=== PATIENT | male | born 1950 | race Caucasian/White ===

== ENCOUNTER 2020-09-07 19:26 | Emergency (ER) | payer MEDICARE ==
[2020-09-07 20:01] VITALS: BP 130/81; PULSE 71; TEMP 100
[2020-09-07 20:03] VITALS: RESP 18
--- NOTE | 2020-09-07 21:07 | ED ---
General Adult HPI - General Chief complaint: Fever Stated complaint: Fever Time Seen by Provider: 09/07/20 20:24 Source: patient Mode of arrival: ambulatory - History of Present Illness Initial comments: 70-year-old male patient presenting to the emergency department via EMS for elevated temperature. Patient states he's been sick for the last 2-3 days with elevated temperature, cough, congestion. States he believes he has COVID-19. States he was exposed. Patient denies any vomiting or diarrhea. Denies shortness of breath or chest pain. Patient is requesting to be discharged without testing. States he just became very nervous when his temperature at home read 104. States he did take Tylenol prior to arrival. - Related Data Home Medications Medication Instructions Recorded Confirmed Advair(Dose Unknown) 1 puff INHALATION DIRECTED PRN 05/24/15 05/29/15 Multivitamins, Thera [Theragran] 1 each PO DAILY 05/24/15 05/29/15 Tamsulosin [Flomax] 0.4 mg PO BID 05/24/15 05/29/15 diphenhydrAMINE HCL [Benadryl] 25 mg PO HS 05/24/15 05/29/15 Allergies Allergy/AdvReac Type Severity Reaction Status Date / Time No Known Allergies Allergy Verified 05/29/15 07:49 Review of Systems ROS Statement: Those systems with pertinent positive or pertinent negative responses have been documented in the HPI. ROS Other: All systems not noted in ROS Statement are negative. Past Medical History Past Medical History: COPD, Prostate Disorder Additional Past Medical History / Comment(s): gout History of Any Multi-Drug Resistant Organisms: None Reported Past Surgical History: Hernia Repair Past Anesthesia/Blood Transfusion Reactions: No Reported Reaction Past Psychological History: No Psychological Hx Reported Smoking Status: Former smoker Past Alcohol Use History: Daily Past Drug Use History: None Reported - Past Family History Father Family Medical History: Cancer General Exam General appearance: alert, in no apparent distress, other (this is a well- developed, well-nourished adult male patient in no acute distress.) Eye exam: Present: normal appearance, PERRL, EOMI. Absent: scleral icterus, conjunctival injection, periorbital swelling ENT exam: Present: normal exam, normal oropharynx, mucous membranes moist Respiratory exam: Present: normal lung sounds bilaterally. Absent: respiratory distress, wheezes, rales, rhonchi, stridor Cardiovascular Exam: Present: regular rate, normal rhythm, normal heart sounds. Absent: systolic murmur, diastolic murmur, rubs, gallop, clicks Neurological exam: Present: alert, oriented X3, CN II-XII intact Psychiatric exam: Present: normal affect, normal mood Skin exam: Present: warm, dry, intact, normal color. Absent: rash Course Vital Signs 09/07/20 09/07/20 19:57 20:02 Temperature 100.0 F H Pulse Rate 71 Respiratory 15 18 Rate Blood Pressure 130/81 Medical Decision Making - Medical Decision Making 70-year-old male patient presented to the emergency department today via EMS for elevated temperature. Patient states became very nervous when his thermometer read 104F so he called an ambulance. States he did take Tylenol prior to coming in. Denies any current shortness of breath or chest pain. I did recommend having testing for it as well as chest x-ray. He declined states he wanted to be discharged. States he is feeling much better now that his fever is improved. I did inform him that he is eligible to receive bamlanivimab monocl onal antibodies if his coronavirus test came back positive. I discussed this treatment in detail including risks versus benefits, he declined stating he wanted to be discharged without any further testing or medications. I did inform him that he would have to sign out AGAINST MEDICAL ADVICE and did discuss risk of worsening illness and . He verbalizes understanding and left the department. My attending is Dr. Porter. Disposition Clinical Impression: Fever, Cough Disposition: Left Against Medical Advice Condition: Undetermined Instructions (If sedation given, give patient instructions): Fever in Adults (ED), Upper Respiratory Infection (ED) Additional Instructions: Emergency department for symptoms worsen or change. Follow-up with the primary care physician as soon as possible. Is patient prescribed a controlled substance at d/c from ED?: No Referrals: Jenny Soni DO [Primary Care Provider] - 1-2 days Time of Disposition: 21:07
== END 2020-09-07 21:20 | disposition left against medical advice (07) ==
LOC: EC 19:26
DX: R50.9 Fever, unspecified (principal); R05 Cough; J44.9 Chronic obstructive pulmonary disease, unspecified; Z87.891 Personal history of nicotine dependence
CPT/HCPCS: 99283

== ENCOUNTER → 2023-09-08 | Outpatient (CLI) | payer MEDICARE ==
--- NOTE | 2023-09-08 18:52 | US ---
EXAMINATION TYPE: US arterial LE single level DATE OF EXAM: 09/08/2023 2:10 PM CLINICAL INDICATION: Male, 73 years old with history of I73.9 PERIPHERAL VASCULAR DISEASE; pain in le gs History of: Smoker: 30 yrs prior Hypertension: n Diabetic: n Hyperlipidemia: n TIA/CVA: n Previous Vascular Surgery: n CAD: n ND: n Vascular Ulcers: n Claudication: n Gangrene: n Doppler Waveforms: Right: Multiphasic Left: Multiphasic Right Brachial Pressure: 166 Left Brachial Pressure: 157 Ankle-Brachial Indices: Right: 1.08 Left: 1.19 (Vessel hardening > 1.4; Normal 0.9 - 1.4, Moderate 0.7 - 0.9, Severe 0.5-0.7) Toe Brachial Indices: Right: non compressible Left: non compressible IMPRESSION: Ankle-brachial indices within normal limits bilaterally.
== END | disposition home or self-care (01) ==
LOC: RADUSWWP 13:37
PROVIDERS: ATTEND Family Medicine
DX: I73.9 Peripheral vascular disease, unspecified (principal); E11.51 Type 2 diabetes mellitus with diabetic peripheral angiopathy without gangrene
CPT/HCPCS: 93922

== ENCOUNTER → 2023-09-29 | Outpatient (CLI) | payer MEDICARE ==
--- NOTE | 2023-09-29 12:56 | XR ---
EXAMINATION TYPE: XR pelvis AP view DATE OF EXAM: 09/29/2023 12:19 PM CLINICAL INDICATION:Male, 73 years old with history of Z18.10 RETAINED METAL FRAGMENTS, UNSPECIFIED; [facility] COMPARISON: None TECHNIQUE: The pelvis was examined in a single projection. FINDINGS: There is no evidence of fracture or dislocation. There is no soft tissue abnormality. No a bnormal calcifications are present. The spine appears intact. The hips appear intact. Osteophyte form ation of the superior acetabulum bilaterally with mild joint space narrowing. IMPRESSION: 1. No acute osseous pathology. 2. Mild degeneration changes of the hip.
--- NOTE | 2023-09-29 13:15 | XR ---
EXAMINATION TYPE: XR femur bilateral DATE OF EXAM: 09/29/2023 12:19 PM CLINICAL INDICATION:Male, 73 years old with history of Z18.10 RETAINED METAL FRAGMENTS, UNSPECIFIED; COMPARISON: Same day pelvic radiograph. TECHNIQUE: XR femur bilateral examined in Frontal and lateral projections. FINDINGS: No evidence of acute osseous pathology, joint dislocation, or soft tissue swelling. Mild o steophyte formations of the superior acetabulum bilaterally. Mild joint space narrowing bilateral hip s hip. The bilateral knees demonstrates joint space narrowing medially with osteophyte formation. No radiopaque foreign bodies. Atherosclerosis of the arterial vasculature. IMPRESSION: 1. No radiopaque foreign bodies. 2. No acute osseous pathology. 3. Moderate right knee osteoarthrosis and mild right hip osteoarthrosis.
== END | disposition home or self-care (01) ==
LOC: RADXRMAIN 11:39
PROVIDERS: ATTEND Family Medicine
DX: M16.11 Unilateral primary osteoarthritis, right hip (principal); M17.11 Unilateral primary osteoarthritis, right knee; Z18.10 Retained metal fragments, unspecified
CPT/HCPCS: 72170

== ENCOUNTER → 2023-10-07 | Outpatient (CLI) | payer MEDICARE ==
--- NOTE | 2023-10-08 11:57 | MR ---
EXAMINATION TYPE: MR lumbar spine wo con DATE OF EXAM: 10/07/2023 9:39 PM CLINICAL INDICATION:Male, 73 years old with history of M54.16 RADICULOPATHY, LUMBAR REGION; , Low kirk k pain that radiates down both legs. COMPARISON: None TECHNIQUE: Multi planar, multi sequence imaging was performed utilizing: T1-weighted, T2-weighted, a nd turbo inversion recovery imaging of the lumbar spine. IV Contrast: cc . (None if empty) FINDINGS: Alignment: The lumbar vertebral bodies have preserved heights and alignment. Cord: The conus medullaris and the distal spinal cord appear unremarkable with regards to their signa l intensity and morphology. Bones/Discs: Multilevel disc degeneration changes with osteophyte formation, disc space narrowing, Sc hmorl's nodes, and facet joint arthropathy. No abnormal inversion recovery signal to suggest bony kiara ma. Multilevel disc desiccation is present. T12-L1: No evidence of significant spinal canal stenosis or neural foraminal stenosis. L1-L2: Disc bulge and facet joint arthropathy result in mild spinal canal and moderate bilateral neur al foraminal stenosis. L2-L3: Disc bulge and facet joint arthropathy result in mild to moderate spinal canal and moderate bi lateral neural foraminal stenosis. L3-L4: Disc bulge and facet joint arthropathy result in severe spinal canal and severe right and mode rate to severe left bilateral neural foraminal stenosis. L4-L5: Disc bulge and facet joint arthropathy result in severe spinal canal and moderate to severe ri ght and severe left bilateral neural foraminal stenosis. L5-S1: Disc bulge and facet joint arthropathy result in mild spinal canal and moderate to severe bila teral neural foraminal stenosis. No significant spinal canal or neural foraminal stenosis in the remainder of the visualized levels. Other findings: None. IMPRESSION: 1. L3-L4 and L4-L5 severe spinal canal stenosis secondary to degeneration. 2. Severe disc degeneration with associated osteoarthritic changes worse at L3-L4, L4-L5 with severe right L3-L4 and severe left L4-L5 neural foraminal stenosis.
== END | disposition home or self-care (01) ==
LOC: RADMRIMAIN 09-29 10:30
PROVIDERS: ATTEND Family Medicine
DX: M51.36 Other intervertebral disc degeneration, lumbar region (principal); M99.73 Connective tissue and disc stenosis of intervertebral foramina of lumbar region; M48.061 Spinal stenosis, lumbar region without neurogenic claudication; M47.26 Other spondylosis with radiculopathy, lumbar region; M51.16 Intervertebral disc disorders with radiculopathy, lumbar region
CPT/HCPCS: 72148